=== PATIENT | male | born 1970 | race Caucasian/White ===

== ENCOUNTER 2017-01-21 11:50 | Day surgery (SDC) | payer OTHER ==
[~2017-01-21] VITALS: Ht 170.2 cm; Wt 113.0 kg
[2017-01-21] VITALS (16 sets, daily range): BP systolic 131–158; BP diastolic 65–95; PULSE 77–80; RESP 13–19; Ht 170.2 cm; Wt 113.0 kg
[2017-01-21] MEDS ORDERED: HYD25 PO (12:47)
[2017-01-21] MEDS ORDERED: SPIR10PO MC (12:47)
[2017-01-21] MEDS ORDERED: LABE100T3 PO (12:47)
[2017-01-21] MEDS ORDERED: TERA2CAP3 PO (12:47)
[2017-01-21] MEDS ORDERED: LOSA25TA5 PO (12:47)
[2017-01-21] MEDS ORDERED: HYDR-3672 PO (12:47)
[2017-01-21] MEDS ORDERED: HEPARIN 1000 UNITS/NS (A-LINE) 1,000 ML ONE (13:07)
[2017-01-21] MEDS ORDERED: HEPARIN 1000 UNITS/ML 10 ML INJ ONE (13:07)
[2017-01-21] MEDS ORDERED: IODIXANOL LOCM 100 ML BTL ONE (13:07)
[2017-01-21] MEDS ORDERED: LIDOCAINE 1% (MDV) 20 ML INJ ONE (13:07)
[2017-01-21] MEDS ORDERED: MIDAZOLAM 1 MG/ML 2 ML INJ ONE (13:08)
[2017-01-21] MEDS ORDERED: VERAPAMIL 5 MG INJ ONE (13:08)
[2017-01-21] MEDS ORDERED: NITROGLYCERIN (IC) 100 MCG/ML INJ ONE (13:08)
[2017-01-21] MEDS ORDERED: FENTAnyl 50 MCG/ML VIAL ONE (13:11)
[2017-01-21] MEDS ORDERED: hydrALAzine 20 MG INJ ONE (13:25)
--- NOTE | 2017-01-21 13:58 | CONS ---
Date/Time of Note Date/Time of Note DATE: 01/21/17 TIME: 13:55 Assessment/Plan Assessment/Plan Chief Complaint/Hosp Course NSTEMI: Trop up to 1.4 with EKG changes. Cardiac cath for definitive coronary evaluation. HTN: BP uncontrolled but pt anxious -cardiac cath for evaluation -further recs based on findings Problems: Consultation Date/Type/Reason Admit Date/Time Date of Consultation: Jan 21, 2017 Type of Consultation: Cardiology Reason for Consultation NSTEMI Referring Provider: IDANIA OSEGUERA MD Hx of Present Illness 46 yo M with a h/o HTN, who presented to [facility] with chest pain and palpitations. He was found to have an NSTEMI with trop of 1.[address] changes so he was transferred to [facility] for cardiac cath. The pt denies chest pain currently. He does have some mild SOB. No prior DE or heart disease. per HPI, otherwise negative Past Medical History HTN Social History Smoking Status: Unknown if ever smoked Exam/Review of Systems Vital Signs Vitals Vital Signs Date Time Temp Pulse Resp B/P Pulse Ox O2 Delivery O2 Flow Rate FiO2 01/21/17 12:30 98.3 77 15 152/95 100 Room Air Exam Constitutional: alert, oriented Psych: no complaints Head: atraumatic, normocephalic Eyes: nl conjunctiva ENMT: nl external ears & nose Neck: No jvd Respiratory: clear to auscultation, diminished breath sounds, No crackles/rales Cardiovascular: regular rate and rhythm, systolic murmur (2/6 KISHOR, muffled due to habitus), No edema Gastrointestinal: non-tender, soft Extremities: normal pulses Neurological: nl mental status, nl speech Skin: No rash or lesions GARY BEST Jan 21, 2017 13:58
[2017-01-21] MEDS ORDERED: ONDANSETRON 4 MG INJ IV PRN (14:00)
[2017-01-21] MEDS ORDERED: ACETAMINOPHEN 325 MG TAB PO PRN (14:00)
[2017-01-21] MEDS ORDERED: morphine 2 MG INJ IV PRN (14:00)
--- NOTE | 2017-01-21 14:02 | OPR ---
Date/Time of Note Date/Time of Note DATE: 01/21/17 TIME: 13:58 Operative Report Free Text/Dictation Procedure Date: 01/21/2017 Procedures Performed: 1)Left heart catheterization with selective left and right coronary angiography. Pre-operative Diagnosis:NSTEMI Post-operative Diagnosis: NSTEMI, normal coronaries Indications: 46 yo M with a h/o HTN, who presented to [facility] with chest pain and palpitations. He was found to have an NSTEMI with trop of 1.[address] changes so he was transferred to [facility] for cardiac cath. Description of Procedure: After informed consent, the patient was brought to the cardiac catheterization lab. The procedure site was prepped and draped in usual manner. The patient was premedicated with versed 1mg and fentanyl 50 mcg. 3 mL lidocaine was injected into the right wrist. Next using the posterior wall technique, the 6/ 5 georgian sheath was inserted into the right radial artery. Next using the JL3.0 and JR4, selective angiography of the left and right coronary arteries were obtained. The pigtail was then advanced into the ventricle and hemodynamics obtained. Left ventricle angiography was not obtained due to high EDP. Next all equipment was removed and hemostasis was obtained by TR band. Findings: Anatomy/Hemodynamics: Left main:short, normal LAD:normal Diagonal:normal Circumflex:codominant, normal Obtuse marginal:normal RCA:normal PDA:normal PLV:normal LV angiography:not done due to elevated LVEDP LV:181/7 Ao:153/94 LVEDP: 40mmHg Contrast used:60 mL Assessment: NSTEMI: normal coronary arteries. Possibly from HOCM/LV obstruction vs less likely PE as high LVEDP Pullback gradient and elevated LVEDP: Doubt valvular, consider HOCM with dynamic obstruction. LV gram not done due to very high LVEDP. Echo to evaluate HTN: may have severe LVH Plan: -transfer back to [facility] after observation -echo at [facility] -if echo normal, consider CTA for PE r/o though low suspicion GARY BEST Jan 21, 2017 14:02
== END 2017-01-21 16:00 | disposition short-term general hospital (02) ==
LOC: CCL 11:50
PROVIDERS: ATTEND Internal Medicine Interventional Cardiology
DX: I21.4 Non-ST elevation (NSTEMI) myocardial infarction (principal); I10 Essential (primary) hypertension
CPT/HCPCS: 93458; C1769; C1887; J0360; J1644; J2250; J3010; Q9967